=== PATIENT | male | born 1960 | race Caucasian/White ===

== ENCOUNTER 2018-10-08 05:39 | Day surgery (SDC) | payer MEDICARE ==
[2018-10-08] MEDS ORDERED: DIPRIVAN 200 MG/20 ML IV ONE (05:40)
[2018-10-08] MEDS ORDERED: Lactated Ringers 1,000 ML IV SCH (06:00)
[2018-10-08 09:16] LABS: Hematocrit 37.4 % (42-50); Hemoglobin 13.3 gm/dl (12.5-18.0); Mean Cell Volume 91.9 fl (78-100); Mean Corpuscular Hgb Concent. 35.6 g/dl (32-36); Mean Platelet Volume 10.2 fl (6-9.5); Platelet Count 132 K/mm3 (150-450); Red Blood Count 4.07 M/mm3 (4.1-5.6); Red Cell Distribution Width 12.7 % (11.5-14.0); White Blood Count 6.9 K/mm3 (4.0-10.5)
[2018-10-08 09:17] LABS: Mean Corpuscular Hemoglobin 32.6 pg (26-32)
[2018-10-08 09:19] VITALS: O2SAT 98
[2018-10-08 09:43] VITALS: BP 120/47; PULSE 55
--- NOTE | 2018-10-08 10:36 | OP ---
SURGERY DATE/TIME: 10/08/2018 0808 PREOPERATIVE DIAGNOSIS: Rectal bleeding, 40 pound weight loss. POSTOPERATIVE DIAGNOSIS: Rectal prolapse otherwise normal colon. PROCEDURE: Colonoscopy. SURGEON: Dr. Colvin. ANESTHESIA: MAC. Medications given by anesthesia department. HISTORY: The patient is a 58 year-old white male who presents now for colonoscopic evaluation. He reports his most recent exam was somewhere around 2004. The patient reports he has been having intermittent rectal bleeding over the past year. He reports a 40 pound weight loss unexplained. He is felt the need to have endoscopic evaluation. He was appraised of the risks of the procedure including the risk of perforation, phlebitis, untoward reaction to medication, bleeding and missed lesions. The patient verbalized his understanding and desired to have the procedure performed. DESCRIPTION OF PROCEDURE: The patient was given the medications by the anesthesia department. He had continuous pulse oximetry, ECG monitoring, intermittent blood pressure monitoring and tidal CO2 monitoring during the examination. He was placed in the left lateral decubitus position. A digital rectal examination was performed and revealed rectal prolapse which was somewhat friable. The anal sphincter tone was somewhat diminished. There were no other masses felt. The prostate was felt to be normal. The flexible Olympus pediatric colonoscope was used to intubate the rectum. A view of the colon was developed sequentially to the cecum including a short distance into the terminal ileum. Upon insertion and withdrawal, including a retroflex view in the rectum with no other mucosal lesions being encountered the scope was removed from the patient who tolerated the procedure well and was sent back to OP recovery in good condition. The prep was noted to be fair to good.
[2018-10-08] MEDS ORDERED: Lactated Ringers 1,000 ML IV ONE (11:03)
== END 2018-10-08 09:45 | disposition home or self-care (01) ==
LOC: SDC 05:39
PROVIDERS: ATTEND Family Medicine
DX: K62.3 Rectal prolapse (principal); R63.4 Abnormal weight loss; E11.9 Type 2 diabetes mellitus without complications; F41.9 Anxiety disorder, unspecified
CPT/HCPCS: 36415; 82962; 85027; J2704

== ENCOUNTER 2019-11-17 09:05 | Observation (INO) | payer MEDICARE ==
--- NOTE | 2019-11-17 08:16 | HP ---
DATE OF SURGERY: 11/17/2019 HISTORY OF PRESENT ILLNESS: The patient is a 59 year-old with history of rectal prolapse, history of rectal bleeding x20 years. He had some epigastric pain right abdomen. He had been referred for opinion at in the past but did not follow up with that. He had some persistent prolapse from bleeding at times. He desires considered surgical intervention. He has had no prior abdominal surgeries before. PAST MEDICAL HISTORY: Diabetes. Hyperlipidemia. Chronic constipation. Sinusitis in the past. Anxiety and depression in the past. PAST SURGICAL HISTORY: Shoulder surgery. Wrist surgery. MEDICATIONS: Escitalopram, Gemfibrozil, Glyburide, Metformin, omeprazole, simvastatin. ALLERGIES: NKDA. FAMILY HISTORY: Heart disease, diabetes, cancer. SOCIAL HISTORY: No alcohol abuse. Former smoker. REVIEW OF SYSTEMS: Fourteen systems reviewed. No chest pain or palpitations. Otherwise for as noted above. PHYSICAL EXAMINATION: GENERAL: No acute distress. HEENT: Sclerae nonicteric. NECK: No JVD. CHEST: Equal excursion, nonlabored breathing. CVS: Regular rate and rhythm. ABDOMEN: Soft. He had some mild tenderness epigastrium. RECTAL: He has had some prolapse of the rectal mucosa, internal and external hemorrhoids. EXTREMITIES: No significant edema. NEURO: Alert, oriented, moving extremities symmetrically. IMPRESSION: Epigastric pain unclear etiology could be gastritis, peptic ulcer disease, esophagitis or other etiology. I feel he would benefit from EGD possible biopsy. Given his problems with change in bowel movements, rectal bleeding, increased prolapse, some hemorrhoids of rectal mucosa, he was discussed options of colonoscopy for further evaluation as well as excisional internal and external hemorrhoidectomy. He was explained the risk in detail but not limited to bleeding or infection, risk of bowel injury or perforation possibly requiring open procedure, risk of missed or nondiagnosis or incomplete exam possibly requiring barium swallow, other studies or procedures regarding endoscopy, regarding his prolapse. He understands that he had been offered tertiary opinion in the past and did not follow up with it. He had been discussed options of excisional internal and external hemorrhoidectomy, general risk of bleeding or infection, risk of wound dehiscence, risk of anal stenosis, risks of aches, pains, burning, numbness transient or possible terminal supervisor. General risk of anesthesia, deep venous thrombosis, pulmonary embolism, pneumonia, remote risk of deeper perirectal infection possibly requiring major operative intervention. He also understands there is a possibility his prolapse is more functional, musculature or other etiology. It could very well be higher risk of recurrence. Given this case he would still get a tertiary opinion if it fails to improve his situation. He understands all the above and still desires to proceed with excisional internal and external hemorrhoids, colonoscopy, EGD possible biopsy as an outpatient.
[~2019-11-17 09:05] MED LIST: Lactated Ringers 1,000 ML IV ONE
[2019-11-17] MEDS ORDERED: EXPAREL 133 MG/10 ML VIAL IJ ONE (09:06)
[2019-11-17] MEDS ORDERED: MEFOXIN 2 GM PREMIX** 2 GM/50 ML ML IV ONE (09:29)
[2019-11-17] MEDS ORDERED: Lactated Ringers 1,000 ML IV SCH (09:30)
[2019-11-17] MEDS ORDERED: SUBLIMAZE 100 MCG/2 ML ONE ×3 (09:59→12:30)
[2019-11-17] MEDS ORDERED: Versed 2 MG/2 ML Injection ONE (09:59)
[2019-11-17] MEDS ORDERED: MEFOXIN 2 GM PREMIX** 2 GM/50 ML ML IV SCH (10:00)
[2019-11-17] MEDS ORDERED: DIPRIVAN 200 MG/20 ML IV ONE (10:00)
[2019-11-17] MEDS ORDERED: Pre-Attached Lta Kit TP ONE (10:40)
[2019-11-17] MEDS ORDERED: Quelicin Fliptop 200 MG/10 ML ONE (10:52)
[2019-11-17] MEDS ORDERED: DILAUDID 2 MG INJECTION ONE (11:26)
[2019-11-17] MEDS ORDERED: Compazine 10 MG/2 ML ONE (12:20)
[2019-11-17] MEDS ORDERED: Zofran 4 MG/2 ML VIAL ONE (13:09)
[2019-11-17] MEDS: Zofran 4 MG/2 ML VIAL IV PRN ×2 (13:10→18:12)
[2019-11-17] MEDS ORDERED: NORCO 5/325 MG PO PRN (13:10)
--- NOTE | 2019-11-17 13:52 | OP ---
SURGERY DATE/TIME: 11/17/2019 1045 PREOPERATIVE DIAGNOSES: 1) Four internal and external hemorrhoids with rectal mucosal prolapse. 2) History of epigastric pain, need for upper and lower endoscopy as well as hemorrhoidectomy. POSTOPERATIVE DIAGNOSES: 1) Minimal gastritis. 2) Plus or minus short segment of distal gastroesophagitis versus normal variation of gastroesophageal junction. 3) Diverticulosis. 4) Fair amount prep. 5) Small sigmoid colon polyp. 6) Grade IV internal and external hemorrhoids with rectal mucosal prolapse. PROCEDURES: 1) EGD with cold biopsy of small bowel to evaluate celiac sprue. 2) Cold biopsy body of antrum to evaluate for Helicobacter pylori. 3) Cold biopsy distal esophagus to evaluate for short segment early distal esophagitis versus normal variation of gastroesophageal junction. 4) Colonoscopy to cecum. 5) Cold biopsy removal of small sigmoid colon polyp. 6) Complex excision of internal/external hemorrhoidectomy left lateral and with excision of rectal mucosa prolapse as well as right posterior lateral columns. 7) Internal hemorrhoid banding right anterior hemorrhoidal column. SURGEON: Dr. Sánchez Mcwilliams. ANESTHESIA: General. ESTIMATED BLOOD LOSS: Less than 75 cc. INDICATIONS: As noted above. Risks and benefits explained in detail and not limited to and consent obtained. DESCRIPTION OF PROCEDURE AND FINDINGS: The patient is taken to the operating room. General anesthesia introduced after official time out and no disagreement with planned procedure. Video gastroscope passed down the oropharynx to patent pylorus to the junction to the junction of second and third portion of the duodenum. Given his symptom complaints and epigastric pain, cold biopsy is taken to evaluate for celiac sprue. Good hemostasis noted. Otherwise there were no signs of any obvious ulcers or masses in the proximal small bowel. Scope pulled back in the stomach. He had some minimal gastritis. Given symptom complaints cold biopsy taken to evaluate for Helicobacter pylori for CLOtest. On retroflex, gastroesophageal junction snug against the scope. There were no signs of any obvious ulcers, masses or other mucosal lesions in the stomach. Scope pulled back. Gastroesophageal junction 40 cm. There was short segment of possible early distal gastroesophagitis versus normal variation in gastroesophageal junction. Cold biopsy taken. Good hemostasis noted. Remainder of the esophagus grossly unremarkable. Scope withdrawn. The patient tolerated this part of the procedure well. Attention was then turned to colonoscopy. Remained in lateral position. Appropriate padding and positioning per anesthesia and OR staff. Digital rectal exam did not reveal any rectal masses. He did have the vague internal and external hemorrhoids with component of rectal mucosal prolapse. Video colonoscope passed up through the tortuous sigmoid, descending, transverse and ascending colon around to cecum. Appendiceal orifice and valve were well visualized. Prep overall was fair. There was a little bit of liquidy stool that was suction irrigated as clear as possible. The scope slowly and carefully withdrawn. Withdrawal time was around 6 minutes. He had some pancolonic mild diverticulosis. He did have a small polyp in the proximal sigmoid colon removed with cold biopsy forceps. Good hemostasis noted. Whether this is early adenoma versus hyperplastic or not removed with cold biopsy forceps. Good hemostasis noted. The scope pulled back to the rectum. No obvious rectal masses. At this point the patient was then placed in dorsal lithotomy position. He was prepped and draped in usual sterile fashion. Exparel injected circumferentially around the perirectal area. The most prominent prolapse is in the left lateral position, this is carefully excised starting internally out to perianal skin. He had more complex dissected off the subcu than off the internal sphincter. It was quite vascular with some pulsatile vessels were able to be controlled. The staff did not immediately have the 3-0 Monocryl available, 2-0 was used for controlling hemostasis in running fashion. He had a little bit of ooze more proximally therefore 3-0 Monocryl was then used for added hemostasis. Appeared to have adequate hemostasis at this point. Once this was accomplished it was elected to go to the opposite side this is mainly the left lateral just slightly posterior position. The next most prominent internal and external hemorrhoid component was the right posterior complex. Given the size of the prolapse on the other side, there is limited amount of skin that could be taken for spindle-shaped fashion. Dissection carried down dissecting the internal and external hemorrhoids component off the internal sphincter and passed off. The mucosa was closed out to the perianal skin with running 3-0 Monocryl. A little bit of ooze at the suture line and another 3-0 Monocryl used to reinforce the area. At this point it was felt the anal opening was getting a snug. It was felt it did not warrant taking additional skin and mucosa in the right anterior component. It was felt best to place internal hemorrhoid band on this to avoid any significant narrowing. Internal hemorrhoid band fit on easily, suction barrel bander loose component of the top edge of the internal hemorrhoid on this side. Suction barrel bander easily fired. Good tuft of the loose internal hemorrhoid tissue. At this point copious irrigation irrigating until clear. Appeared to have good hemostasis. Exparel had been placed at the beginning of the procedure. Hemostasis appeared to be adequate. For added hemostasis a piece of gel foam, Anusol ointment placed on it, some gauze and a piece of tape. The patient tolerated the procedure well. Findings discussed with the family out in the waiting area. Should he have problems with recurrent prolapse down the road, will need tertiary opinion. He will be quite sore in the near future. Sitz bath b.i.d., script for Valium for spasm, [place] for pain control, continue sitz bath, high fiber diet, Metamucil, Fibercon to titrate soft bulky bowel movements. I will see him back in the office in the next week or two depending on his choice of location to follow up at.
[2019-11-17] MEDS ORDERED: MORPHINE SULFATE 4 MG INJ ONE (14:14)
[2019-11-17] MEDS: MORPHINE SULFATE 4 MG INJ IV PRN ×2 (14:18→22:57)
[2019-11-17] MEDS ORDERED: Haldol 5 MG IV SCH (16:00)
[2019-11-17] MEDS ORDERED: Lactated Ringers 1,000 ML IV ONE (16:48)
[2019-11-17 17:19] LABS: Hematocrit 43.1 % (42-50); Hemoglobin 15.2 gm/dl (12.5-18.0); Mean Cell Volume 92.5 fl (78-100); Mean Corpuscular Hemoglobin 32.6 pg (26-32); Mean Corpuscular Hgb Concent. 35.3 g/dl (32-36); Mean Platelet Volume 11.1 fl (7.5-11.0); Platelet Count 131 K/mm3 (150-450); Red Blood Count 4.66 M/mm3 (4.1-5.6); White Blood Count 18.9 K/mm3 (4.0-10.5)
[2019-11-17 17:37] LABS: ALBUMIN 4.8 g/dL (3.5-5.0); ALKALINE PHOSPHATASE 93 U/L (38-126); ANION GAP 17.8 MEQ/L (5-15); BLOOD UREA NITROGEN 18 mg/dL (9-20); CHLORIDE 104 mmol/L (98-107); Calcium 9.1 mg/dL (8.4-10.2); Carbon Dioxide 22 mmol/L (22-30); Creatinine 1 0.64 mg/dL (0.66-1.25); Glucose 260 mg/dL (74-106); Potassium 3.5 mmol/L (3.5-5.1); SGOT/AST 34 U/L (17-59); SGPT/ALT 23 U/L (0-50); SODIUM 141 mmol/L (137-145); TROPONIN < 0.012 ng/mL (0.000-0.034); Total Protein 7.8 g/dL (6.3-8.2)
[2019-11-17] MEDS ORDERED: Valium 5 MG PO PRN (18:25)
[2019-11-17] MEDS ORDERED: HUMALOG SQ PRN (18:26)
[2019-11-17] MEDS ORDERED: Phenergan 25 MG INJ IV PRN (18:26)
[2019-11-17] MEDS: Sodium Chloride 0.9% 1000 ML 1,000 ML IV SCH (18:29)
[2019-11-17 23:42] VITALS: O2SAT 96
[2019-11-18] MEDS: Sodium Chloride 0.9% 1000 ML 1,000 ML IV SCH (04:55)
[2019-11-18 04:59] LABS: Absolute Neutrophil Ct (ANC) 9.74 (1.4-6.9); BASOPHIL % 0.1 % (0.0-0.4); Basophil (Absolute #) 0.01 (0-0.4); Eosinophil (Absolute #) 0 (0-0.5); Hematocrit 36.7 % (42-50); Hemoglobin 13.2 gm/dl (12.5-18.0); Lymphocyte (Absolute #) 0.88 (1.0-4.6); Lymphocytes % 7.6 % (24.0-44.0); Mean Cell Volume 92.2 fl (78-100); Mean Corpuscular Hemoglobin 33.2 pg (26-32); Mean Platelet Volume 11.2 fl (7.5-11.0); Monocyte (Absolute #) 0.91 (0.0-1.3); Monocytes % 7.9 % (0.0-12.0); Neutrophil % 84.4 % (36.0-66.0); Platelet Count 119 K/mm3 (150-450); Red Blood Count 3.98 M/mm3 (4.1-5.6); Red Cell Distribution Width 12.6 % (11.5-14.0); White Blood Count 11.5 K/mm3 (4.0-10.5)
[2019-11-18 05:16] LABS: ALBUMIN 4.3 g/dL (3.5-5.0); ALKALINE PHOSPHATASE 74 U/L (38-126); ANION GAP 11.4 MEQ/L (5-15); BLOOD UREA NITROGEN 15 mg/dL (9-20); CHLORIDE 105 mmol/L (98-107); Calcium 8.8 mg/dL (8.4-10.2); Carbon Dioxide 27 mmol/L (22-30); Creatinine 1 0.63 mg/dL (0.66-1.25); Glucose 168 mg/dL (74-106); Potassium 3.9 mmol/L (3.5-5.1); SGOT/AST 25 U/L (17-59); SGPT/ALT 22 U/L (0-50); SODIUM 140 mmol/L (137-145); Total Protein 7.1 g/dL (6.3-8.2)
[2019-11-18 08:04] VITALS: BP 172/85; PULSE 82
[2019-11-18] MEDS ORDERED: Glynase 3 MG PO SCH (09:00)
[2019-11-18] MEDS ORDERED: Glucophage 500 MG PO SCH (09:00)
[2019-11-18] MEDS ORDERED: NON-FORMULARY ITEM (Metformin Hcl 1000 Mg [Glucophage 1000 Mg] 1,000 MG) PO SCH (10:00)
[2019-11-18] MEDS ORDERED: FLUZONE QUAD 2019-2020 SYRINGE IM ONE (10:00)
[2019-11-18] MEDS ORDERED: LOPID 600 MG PO SCH (10:00)
[2019-11-18] MEDS ORDERED: Micronase 5 MG PO SCH (10:00)
[2019-11-18] MEDS ORDERED: NON-FORMULARY ITEM (Escitalopram Oxalate [Lexapro] 20 MG) PO SCH (10:00)
[2019-11-18] MEDS ORDERED: Lexapro 10 MG PO SCH (10:00)
[2019-11-18] MEDS ORDERED: NON-FORMULARY ITEM (Omeprazole [Omeprazole] 20 MG) PO SCH (10:00)
[2019-11-18] MEDS ORDERED: Protonix 40MG Tablet PO SCH (10:00)
[2019-11-18] MEDS ORDERED: ZOCOR 20MG PO SCH (10:00)
--- NOTE | 2019-11-18 10:16 | DS ---
DISCHARGE DIAGNOSES: 1) INTRACTABLE NAUSEA. 2) STATUS POST HEMORRHOIDECTOMY. HOSPITAL COURSE: The patient is a 59 year-old white male who underwent colonoscopy and hemorrhoidectomy for rectal prolapse, internal and external hemorrhoid banding. The patient postoperatively had nausea which was not controlled with Zofran, Haldol and Compazine. The patient was diaphoretic and very ill appearing and was therefore admitted to the hospital after four hour stay in outpatient recovery. By the next morning the patient was feeling much better and was able to drink fluids and was feeling ready for discharge home. The patient's home medications have included diazepam 10 mg every six hours PRN for anxiety, Lexapro 20 mg a day, Lopid 600 mg b.i.d., Glyburide 6 mg b.i.d., hydrocodone 5/325 mg every four hours PRN for pain, Metformin 1,000 mg b.i.d., omeprazole 20 mg a day, Simvastatin 20 mg a day. The patient was given pain medication by his surgeon which he will fill on his trip home. He has follow up to see the surgeon in the office in one week. The patient otherwise again is felt to be ready for discharge home. At the time of discharge the patient's labs showed his glucose to be 168, BUN 15, creatinine 0.63. Electrolytes normal. Liver enzymes normal. CBC showed his white count to be 11,500, hemoglobin 13.2 and PLT count 119,000. PHYSICAL EXAMINATION: HEENT: Normocephalic, atraumatic. Pupils equal round reactive to light. Extraocular movements intact. Oropharynx is pink and moist. NECK: Supple without lymphadenopathy, thyromegaly or JVD. CHEST: Clear to auscultation. HEART: Regular rhythm. ABDOMEN: Soft. No palpable masses. EXTREMITIES: Without cyanosis, clubbing or edema. NEUROLOGIC: The patient is alert and oriented x3. Again at this point the patient will be discharged home with instructions to return to the hospital if he has any worsening in his condition.
== END 2019-11-18 09:59 | disposition home or self-care (01) ==
LOC: SDC 09:05 → ICU 17:21 → INTOOBSV 17:21
PROVIDERS: ADMIT Family Medicine; ATTEND Family Medicine
DX: R11.0 Nausea (principal); R61 Generalized hyperhidrosis; R06.02 Shortness of breath; K64.3 Fourth degree hemorrhoids; K62.3 Rectal prolapse; K29.70 Gastritis, unspecified, without bleeding; K20.9 Esophagitis, unspecified; K57.30 Diverticulosis of large intestine without perforation or abscess without bleeding; K63.5 Polyp of colon; E11.9 Type 2 diabetes mellitus without complications; E78.5 Hyperlipidemia, unspecified; R10.13 Epigastric pain; Z79.899 Other long term (current) drug therapy
CPT/HCPCS: 36415; 43239; 45398; 46221; 46260; 80053; 82962; 84484; 85025; 85027; 87081; 93005; G0378; 88304; 88305; J0330; J0694; J1170; J1630; J1817; J2250; J2270; J2405; J2550; J2704; J3010; A9270-GY

== ENCOUNTER 2023-07-04 14:49 | Emergency (ER) | payer MEDICARE ==
--- NOTE | 2023-07-04 14:53 | ERPHSYRPT ---
- History of Present Illness Time Seen by Provider: 07/04/23 14:53 Source: patient, family, EMS Exam Limitations: no limitations Physician History: This is a 63-year-old white male patient of nurse practitioner Jett who was brought into the emergency department by slicing machine operator/tender/ambulance service secondary to nausea vomiting and generalized aches and pains. Symptoms have been progressively worsening over 3 to 4 days. His has similar symptoms and they have been trying to stay away from each other at home because of the fear of contagious symptoms. He also feels a little weak as well. Patient has multiple medical problems including diabetes, hypertension, gastroesophageal flux disease, hyperlipidemia and anxiety/depression. Patient has been feeling as though he has to have a bowel movement. However he has been constipated in the last 3 to 4 days. He denies chest pain. He denies shortness of breath or cough. Severity: moderate Associated Symptoms: nausea, vomiting, loss of appetite, malaise, weakness, No shortness of breath, No chest pain, No fever Allergies/Adverse Reactions: No Known Drug Allergies Allergy (Verified 07/04/23 15:01) Home Medications: Gemfibrozil [Lopid] 600 mg PO BID 12/22/14 [History] Metformin HCl 1000 mg [Glucophage 1000 MG] 1,000 mg PO BID 12/22/14 [History] Simvastatin 20Mg [Zocor 20Mg] 20 mg PO DAILY 10/07/18 [History] Dicyclomine HCl 20 mg PO QID 07/04/23 [History] PANTOPRAZOLE 40 mg Tablet [Protonix 40MG Tablet] 40 mg PO QAM 07/04/23 [History] Sertraline HCl 50 mg [Zoloft 50 mg Tablet] 50 mg PO DAILY 07/04/23 [History] glipiZIDE [Glipizide] 5 mg PO BID 07/04/23 [History] lisinopriL [Zestril] 2.5 mg PO DAILY 07/04/23 [History] Hx Tetanus, Diphtheria Vaccination/Date Given: Yes Hx Influenza Vaccination/Date Given: Yes Hx Pneumococcal Vaccination/Date Given: No Travel Risk - International Travel Have you traveled outside of the country in past 3 weeks: No - Coronavirus Screening Are you exhibiting any of the following symptoms?: Yes Symptoms: Vomiting/Diarrhea, Headaches/Body Aches/Fatigue Close contact with a COVID-19 positive Pt in past 14-21 Days: No - Review of Systems Constitutional: Malaise, Weakness Eyes: No Symptoms Ears, Nose, & Throat: No Symptoms Respiratory: No Symptoms Cardiac: No Symptoms Abdominal/Gastrointestinal: Nausea, Vomiting, Constipation, Appetite Changes, No Abdominal Pain Genitourinary Symptoms: No Symptoms Musculoskeletal: Arthralgias, Myalgias Skin: No Symptoms Neurological: No Symptoms Psychological: No Symptoms Endocrine: No Symptoms Hematologic/Lymphatic: No Symptoms Immunological/Allergic: No Symptoms All Other Systems: Reviewed and Negative - Past Medical History Pertinent Past Medical History: Yes Neurological History: No Pertinent History ENT History: No Pertinent History Cardiac History: No Pertinent History Respiratory History: Sleep Apnea, Other Endocrine Medical History: Diabetes Type II Musculoskeletal History: Other GI Medical History: GERD, Hemorrhoids History: Renal Disease, Other Psycho-Social History: Anxiety, Depression Male Reproductive Disorders: No Pertinent History Other Medical History: Former smoker. Hx of kidney stones. First stage kidney disease.Titanium plate in right wrist. - Past Surgical History Past Surgical History: Yes Neuro Surgical History: No Pertinent History Cardiac: No Pertinent History Respiratory: No Pertinent History Gastrointestinal: No Pertinent History Genitourinary: No Pertinent History Musculoskeletal: Orthopedic Surgery Male Surgical History: No Pertinent History Other Surgical History: Rotator cuff surgery, Rt wrist with titanium plate. carpal tunnel, left elbow.colonoscopy - Social History Smoking Status: Former smoker How long have you smoked: 20years Exposure to second hand smoke: No Drug Use: none Patient Lives Alone: No - Nursing Vital Signs Nursing Vital Signs: Initial Vital Signs Temperature 96.7 F 07/04/23 14:51 Pulse Rate 58 L 07/04/23 14:51 Blood Pressure 178/73 07/04/23 14:51 O2 Sat by Pulse Oximetry 100 07/04/23 14:51 Pain Scale Pain Intensity 8 - Physical Exam General Appearance: mild distress, alert, anxiety Eye Exam: PERRL/EOMI, eyes nml inspection Ears, Nose, Throat Exam: normal ENT inspection, moist mucous membranes Neck Exam: normal inspection, non-tender, supple, full range of motion Respiratory Exam: normal breath sounds, lungs clear, airway intact, No chest tenderness, No respiratory distress Cardiovascular Exam: regular rate/rhythm, normal heart sounds, normal peripheral pulses Gastrointestinal/Abdomen Exam: soft, normal bowel sounds, No tenderness Rectal Exam: not done Back Exam: normal inspection, normal range of motion, No CVA tenderness, No vertebral tenderness Extremity Exam: normal inspection, normal range of motion, pelvis stable Neurologic Exam: alert, oriented x 3, cooperative, workforce development assistant II-XII nml as tested, normal mood/affect, nml cerebellar function, nml station & gait, sensation nml Skin Exam: normal color, warm, dry Lymphatic Exam: No adenopathy SpO2 Interpretation: normal O2 Delivery: Room Air - Course Nursing assessment & vital signs reviewed: Yes Ordered Tests: Active Orders 24 hr Category Date Time Status EKG-ER Only STAT Care 07/04/23 15:19 Active IV Insertion STAT Care 07/04/23 15:19 Active ABDOMEN AND PELVIS W/0 CONTRAS [CT] Stat Exams 07/04/23 15:34 Completed AMYLASE Stat Lab 07/04/23 15:30 Completed CBC W DIFF Stat Lab 07/04/23 15:30 Completed CMP Stat Lab 07/04/23 15:30 Completed LIPASE Stat Lab 07/04/23 15:30 Completed TROPONIN Q4H Lab 07/04/23 15:30 Completed TROPONIN Q4H Lab 07/04/23 19:30 Ordered TROPONIN Q4H Lab 07/04/23 23:30 Ordered UA W/RFX UR CULTURE Stat Lab 07/04/23 18:17 Completed Medication Summary Generic Name Dose Route Start Last Admin Trade Name Freq PRN Reason Stop Dose Admin Sodium Chloride 1,000 mls @ 999 mls/hr 07/04/23 18:44 Sodium Chloride 0.9% 1000 Ml IV 07/04/23 19:44 .Q1H1M STA Discontinued Medications Generic Name Dose Route Start Last Admin Trade Name Freq PRN Reason Stop Dose Admin Hydromorphone HCl 1 mg 07/04/23 15:33 07/04/23 15:46 Hydromorphone 1 Mg/1ml Inj IV 07/04/23 15:34 1 mg STAT ONE Administration Hydromorphone HCl Confirm 07/04/23 15:45 Hydromorphone 1 Mg/1ml Inj Administered 07/04/23 15:46 Dose 1 mg .ROUTE .STK-MED ONE Sodium Chloride 1,000 mls @ 999 mls/hr 07/04/23 15:19 07/04/23 17:04 Sodium Chloride 0.9% 1000 Ml IV 07/04/23 16:19 Infused .Q1H1M STA Infusion Sodium Chloride Confirm 07/04/23 15:46 Sodium Chloride 0.9% 1000 Ml Administered 07/04/23 15:47 Dose 1,000 mls @ ud .ROUTE .STK-MED ONE Sodium Chloride 1,000 mls @ 999 mls/hr 07/04/23 17:24 07/04/23 17:36 Sodium Chloride 0.9% 1000 Ml IV 07/04/23 18:24 999 mls/hr .Q1H1M STA Administration Sodium Chloride Confirm 07/04/23 17:34 Sodium Chloride 0.9% 1000 Ml Administered 07/04/23 17:35 Dose 1,000 mls @ ud .ROUTE .STK-MED ONE Ondansetron HCl 4 mg 07/04/23 15:19 07/04/23 15:46 Ondansetron Hcl 4 Mg/2 Ml Vial IV 07/04/23 15:20 4 mg STAT ONE Administration Ondansetron HCl Confirm 07/04/23 15:45 Ondansetron Hcl 4 Mg/2 Ml Vial Administered 07/04/23 15:46 Dose 4 mg .ROUTE .STK-MED ONE Lab/Rad Data: Laboratory Result Diagrams 07/04/23 15:30 07/04/23 15:30 Laboratory Results 07/04/23 07/04/23 07/04/23 Range/Units 18:17 15:30 15:30 WBC (4.0-10.5) x10^3/uL RBC (4.1-5.6) x10^6/uL Hgb (12.5-18.0) g/dL Hct (42-50) % MCV (78-100) fL MCH (26-32) pg MCHC (32-36) g/dL RDW (11.5-14.0) % Plt Count (150-450) x10^3/uL MPV (7.5-11.0) fL Gran % (36.0-66.0) % Immature Gran % (Auto) (0.00-0.4) % Nucleat RBC Rel Count (0.00-0.1) % Eos # (Auto) (0-0.5) x10^3/uL Immature Gran # (Auto) (0.00-0.03) x10^3u/L Absolute Lymphs (auto) (1.0-4.6) x10^3/uL Absolute Monos (auto) (0.0-1.3) x10^3/uL Absolute Nucleated RBC (0.00-0.01) x10^3u/L Lymphocytes % (24.0-44.0) % Monocytes % (0.0-12.0) % Eosinophils % (0.00-5.0) % Basophils % (0.0-0.4) % Absolute Granulocytes (1.4-6.9) x10^3/uL Basophils # (0-0.4) x10^3/uL Sodium (137-145) mmol/L Potassium (3.5-5.1) mmol/L Chloride (98-107) mmol/L Carbon Dioxide (22-30) mmol/L Anion Gap (5-15) MEQ/L BUN (9-20) mg/dL Creatinine (0.66-1.25) mg/dL Estimated GFR ML/MIN Glucose (74-106) mg/dL Calcium (8.4-10.2) mg/dL Total Bilirubin (0.2-1.3) mg/dL AST (17-59) U/L ALT (0-50) U/L Alkaline Phosphatase (38-126) U/L Troponin I < 0.012 (0.000-0.034) ng/mL Serum Total Protein (6.3-8.2) g/dL Albumin (3.5-5.0) g/dL Amylase (30-110) U/L Lipase (23-300) U/L Urine Color Yellow (Yellow) Urine Appearance Clear (Clear) Urine pH 6.5 (4.6-8.0) Ur Specific Mobile >=1.030 A (1.005-1.030) Urine Protein 30 (Negative) Urine Glucose (UA) >=1000 A (Negative) mg/dL Urine Ketones 80 A (Negative) Urine Blood Negative (Negative) Urine Nitrite Negative (Negative) Urine Bilirubin Negative (Negative) Urine Urobilinogen 1.0 A (0.2) mg/dL Ur Leukocyte Esterase Negative (Negative) U Hyaline Cast (Auto) 3-5 A (0-2) /LPF Urine Microscopic RBC 0-2 (0-5) /HPF Urine Microscopic WBC 0-2 (0-5) /HPF Ur Epithelial Cells None Seen (None Seen) /HPF Urine Bacteria None Seen (None Seen) /HPF Urine Culture Reflexed NO (NO) Influenza Type A Ag NEGATIVE (NEGATIVE) Influenza Type B Ag NEGATIVE (NEGATIVE) RSV (PCR) NEGATIVE (NEGATIVE) SARS-CoV-2 (PCR) POSITIVE A (NEGATIVE) Slides for Path Review 07/04/23 07/04/23 Range/Units 15:30 15:30 WBC 3.3 L (4.0-10.5) x10^3/uL RBC 4.25 (4.1-5.6) x10^6/uL Hgb 13.8 (12.5-18.0) g/dL Hct 38.3 L (42-50) % MCV 90.1 (78-100) fL MCH 32.5 H (26-32) pg MCHC 36.0 (32-36) g/dL RDW 11.9 (11.5-14.0) % Plt Count 99 L (150-450) x10^3/uL MPV 10.6 (7.5-11.0) fL Gran % 72.9 H (36.0-66.0) % Immature Gran % (Auto) 0.3 (0.00-0.4) % Nucleat RBC Rel Count 0.0 (0.00-0.1) % Eos # (Auto) 0 (0-0.5) x10^3/uL Immature Gran # (Auto) 0.01 (0.00-0.03) x10^3u/L Absolute Lymphs (auto) 0.41 L (1.0-4.6) x10^3/uL Absolute Monos (auto) 0.46 (0.0-1.3) x10^3/uL Absolute Nucleated RBC 0.00 (0.00-0.01) x10^3u/L Lymphocytes % 12.5 L (24.0-44.0) % Monocytes % 14.0 H (0.0-12.0) % Eosinophils % 0.0 (0.00-5.0) % Basophils % 0.3 (0.0-0.4) % Absolute Granulocytes 2.40 (1.4-6.9) x10^3/uL Basophils # 0.01 (0-0.4) x10^3/uL Sodium 136 L (137-145) mmol/L Potassium 3.9 (3.5-5.1) mmol/L Chloride 106 (98-107) mmol/L Carbon Dioxide 16 L* (22-30) mmol/L Anion Gap 20.1 H (5-15) MEQ/L BUN 29 H (9-20) mg/dL Creatinine 0.66 (0.66-1.25) mg/dL Estimated GFR > 60.0 ML/MIN Glucose 241 H (74-106) mg/dL Calcium 9.2 (8.4-10.2) mg/dL Total Bilirubin 0.60 (0.2-1.3) mg/dL AST 55 (17-59) U/L ALT 42 (0-50) U/L Alkaline Phosphatase 92 (38-126) U/L Troponin I (0.000-0.034) ng/mL Serum Total Protein 7.2 (6.3-8.2) g/dL Albumin 4.6 (3.5-5.0) g/dL Amylase 79 (30-110) U/L Lipase 185 (23-300) U/L Urine Color (Yellow) Urine Appearance (Clear) Urine pH (4.6-8.0) Ur Specific Mobile (1.005-1.030) Urine Protein (Negative) Urine Glucose (UA) (Negative) mg/dL Urine Ketones (Negative) Urine Blood (Negative) Urine Nitrite (Negative) Urine Bilirubin (Negative) Urine Urobilinogen (0.2) mg/dL Ur Leukocyte Esterase (Negative) U Hyaline Cast (Auto) (0-2) /LPF Urine Microscopic RBC (0-5) /HPF Urine Microscopic WBC (0-5) /HPF Ur Epithelial Cells (None Seen) /HPF Urine Bacteria (None Seen) /HPF Urine Culture Reflexed (NO) Influenza Type A Ag (NEGATIVE) Influenza Type B Ag (NEGATIVE) RSV (PCR) (NEGATIVE) SARS-CoV-2 (PCR) (NEGATIVE) Slides for Path Review YES - Progress Progress: improved, pain not gone completely, re-examined Progress Note: 07/04/23 18:33 This patient's medical issue is 1 of moderate complexity. Level complex in the work-up performed based on review of the patient's past medical history, review of the patient's medication list, review of the patient's drug allergy list, history of present illness and physical findings on examination. This work-up includes placement of intravenous line, CBC, CMP, urinalysis, amylase and lipase levels, COVID-19, influenza a and B, RSV levels, mono test. We provide the patient with a liter of intravenous normal saline solution, 1 mg intravenous Dilaudid, 4 mg of intravenous Zofran. I reviewed the above laboratory results. Patient has infection of her COVID-19. He is dehydrated. We will provide him with at least 1 more liter of normal saline solution. CT scan of the abdomen pelvis without contrast was interpreted by the radiologist. There is a new small hiatal hernia present. Small bowel loops are nonobstructed. There is a normal appendix. There is sigmoid diverticulosis without diverticulitis. There is little to no scattered colonic fecal debris I reexamined the patient. His room air oxygenation saturation level is 98%. He is feeling much improved. We will provide him with at least another liter of normal saline solution. We will check his urinalysis and determine if he needs another l of normal saline solution. Patient would like to try to go home if po ssible. It does appear he may have mild DKA. I feel that after his fluid infusion he will be stable for discharge to home. Counseled pt/family regarding: lab results, diagnosis, need for follow-up, rad results Medical Desision Making - Independent Historian Additional History obtained from: Spray I Painter/EMT - Diagnostic Testing Diagnostic test were ordered, analyzed, and reviewed by me: Yes Radiological Interpretation: Reviewed by me, Teleradiologist Report - Risk of complications The pt has a mod risk of morbidity or mortality based on: Need for prescription drug management - Departure Departure Disposition: Home Clinical Impression: COVID-19 virus infection, DKA (diabetic ketoacidosis) Condition: Stable Critical Care Time: No Referrals: LEVON PINA NP [Primary Care Provider] - Follow up/PCP as directed Additional Instructions: Drink plenty of fluids. Take your medications as prescribed. Follow-up with your primary care provider by phone tomorrow, 07/05/2023, to make arrangements for follow-up appointment in a week to 10 days. Return to the emergency department if symptoms worsen. Prescriptions: Hydrocodone/Acetaminophen [Hydrocodone-Acetamn 7.5-325/15] 10 ml PO Q8H PRN #120 ml MDD 30 ml PRN Reason: Cough
[2023-07-04 15:01] VITALS: TEMP 96.7
[2023-07-04] MEDS ORDERED: Zofran 4 MG/2 ML VIAL IV ONE (15:19)
[2023-07-04] MEDS ORDERED: Sodium Chloride 0.9% 1000 ML 1,000 ML IV STA ×3 (15:19→18:44)
[2023-07-04] MEDS ORDERED: Hydromorphone 1 mg/ml Injection IV ONE (15:33)
[2023-07-04 15:38] LABS: BASOPHIL % 0.3 % (0.0-0.4); Basophil (Absolute #) 0.01 x10^3/uL (0-0.4); Eosinophil (Absolute #) 0 x10^3/uL (0-0.5); Hematocrit 38.3 % (42-50); Hemoglobin 13.8 g/dL (12.5-18.0); IMMATURE GRAN # 0.01 x10^3u/L (0.00-0.03); IMMATURE GRAN % 0.3 % (0.00-0.4); Lymphocyte (Absolute #) 0.41 x10^3/uL (1.0-4.6); Lymphocytes % 12.5 % (24.0-44.0); Mean Cell Volume 90.1 fL (78-100); Mean Corpuscular Hemoglobin 32.5 pg (26-32); Mean Platelet Volume 10.6 fL (7.5-11.0); Monocyte (Absolute #) 0.46 x10^3/uL (0.0-1.3); Neutrophil % 72.9 % (36.0-66.0); Platelet Count 99 x10^3/uL (150-450); Red Blood Count 4.25 x10^6/uL (4.1-5.6); Red Cell Distribution Width 11.9 % (11.5-14.0); White Blood Count 3.3 x10^3/uL (4.0-10.5)
[2023-07-04] MEDS ORDERED: Zofran 4 MG/2 ML VIAL ONE (15:45)
[2023-07-04] MEDS ORDERED: Hydromorphone 1 mg/ml Injection ONE (15:45)
[2023-07-04] MEDS ORDERED: Sodium Chloride 0.9% 1000 ML 1,000 ML ONE ×3 (15:46→19:11)
[2023-07-04 15:57] LABS: ALBUMIN 4.6 g/dL (3.5-5.0); ALKALINE PHOSPHATASE 92 U/L (38-126); AMYLASE 79 U/L (30-110); ANION GAP 20.1 MEQ/L (5-15); BLOOD UREA NITROGEN 29 mg/dL (9-20); CHLORIDE 106 mmol/L (98-107); Calcium 9.2 mg/dL (8.4-10.2); Creatinine 1 0.66 mg/dL (0.66-1.25); EST GLOMERULAR FILTRATION RATE > 60.0 ML/MIN; Glucose 241 mg/dL (74-106); LIPASE 185 U/L (23-300); Potassium 3.9 mmol/L (3.5-5.1); SGOT/AST 55 U/L (17-59); SGPT/ALT 42 U/L (0-50); SODIUM 136 mmol/L (137-145); Total Protein 7.2 g/dL (6.3-8.2)
[2023-07-04 16:04] LABS: Carbon Dioxide 16 mmol/L (22-30)
[2023-07-04 16:15] LABS: INFLUENZA A NEGATIVE (NEGATIVE); INFLUENZA B NEGATIVE (NEGATIVE); RESPIRATORY SYNCTIAL VIRUS NEGATIVE (NEGATIVE)
[2023-07-04 16:23] LABS: Slide Review 1 YES
[2023-07-04 16:24] LABS: SARS-CoV-2 Xpert Express POSITIVE (NEGATIVE)
--- NOTE | 2023-07-04 16:58 | XRAY ---
Indication: Left lower quadrant pain. Constipation. Multiple contiguous axial images obtained through the abdomen and pelvis without contrast. Comparison: August 05, 2018 Lung bases clear. Heart not enlarged. New small hiatal hernia. Noncontrasted stomach and bowel loops nonobstructed with normal appendix. Again mild sigmoid diverticulosis without diverticulitis. Little to no scattered colonic fecal debris. Stable mild fatty liver, nonobstructing left renal punctate calculus, and pancreatic tail chronic pancreatitis calcification. No free fluid/air. Remaining liver, gallbladder, pancreas, spleen, adrenal glands, kidneys, ureters, bladder, and aorta are unremarkable for noncontrast exam. Osseous structures intact. Stable small fatty left inguinal hernia. Impression: 1. New hiatal hernia. 2. Again chronic findings including sigmoid diverticulosis, fatty liver, nonobstructing left renal punctate calculus, chronic pancreatitis calcification, and fatty left inguinal hernia. 3. Remaining CT abdomen/pelvis without contrast exam is negative.
[2023-07-04 18:38] LABS: Appearance Clear (Clear); Bacteria None Seen /HPF (None Seen); Bilirubin Negative (Negative); Blood Negative (Negative); Epithelial Cells None Seen /HPF (None Seen); Glucose, Urine >=1000 mg/dL (Negative); Ketones 80 (Negative); Leukocyte Esterase Negative (Negative); Nitrite Negative (Negative); Ph 6.5 (4.6-8.0); Protein,Urine Dip 30 (Negative); RBC 0-2 /HPF (0-5); Specific Gravity >=1.030 (1.005-1.030); WBC 0-2 /HPF (0-5)
[2023-07-04 18:42] LABS: ADD URINE CULTURE? NO (NO)
[2023-07-04] MEDS ORDERED: HYDROCODONE-ACETAMIN 2.5-108/5 ML SOLUTION PO STA (19:15)
[2023-07-04] MEDS ORDERED: HYDROCODONE-ACETAMIN 2.5-108/5 ML SOLUTION ONE (19:22)
[2023-07-04 19:42] VITALS: RESP 18; O2SAT 100
[2023-07-04 20:12] VITALS: BP 147/76; PULSE 45
== END 2023-07-04 20:23 | disposition home or self-care (01) ==
LOC: ED 14:49
DX: U07.1 COVID-19 (principal); E11.10 Type 2 diabetes mellitus with ketoacidosis without coma; R11.2 Nausea with vomiting, unspecified; M79.10 Myalgia, unspecified site; R53.1 Weakness; I12.9 Hypertensive chronic kidney disease with stage 1 through stage 4 chronic kidney disease, or unspecified chronic kidney disease; E11.22 Type 2 diabetes mellitus with diabetic chronic kidney disease; N18.1 Chronic kidney disease, stage 1; E78.5 Hyperlipidemia, unspecified; Z79.84 Long term (current) use of oral hypoglycemic drugs; Z79.891 Long term (current) use of opiate analgesic; Z79.899 Other long term (current) drug therapy
CPT/HCPCS: 0241U; 36415; 74176; 80053; 81001; 82150; 83690; 84484; 85025; 96360; 96374; 96375; 99284; J1170; J2405; A9270-GY

== ENCOUNTER 2025-06-25 11:24 | Emergency (ER) | payer MEDICARE ==
--- NOTE | 2025-06-25 11:47 | ERPHSYRPT ---
- History of Present Illness Time Seen by Provider: 06/25/25 11:46 Source: patient, family Exam Limitations: no limitations Physician History: This is a 65-year-old white male patient of nurse practitioner Jett who arrives by private vehicle accompanied by his spouse with the complaint of lower abdominal pain, rectal pain and weight loss for at least 2 months. He has difficulty having a bowel movement. This has worsened over at least 2 months. Patient underwent a colonoscopy as well as banding of internal hemorrhoids and excision of external hemorrhoids with excision of rectal mucosal prolapse and rectal lateral columns on November 17, 2019. Patient states that the pain down low in the pelvis is severe cramping. Patient has a history of diabetes, hypertension, gastroesophageal reflux disease, hyperlipidemia, anxiety and depression as well as chronic renal disease. He denies chest pain and he denies shortness of breath. Timing/Duration: other (For at least 2 months) Severity: moderate Modifying Factors: Improves With: other (Pain worsens with attempting to have a bowel movement) Associated Symptoms: abdominal pain (Mild pelvic and rectal floor pain), No shortness of breath, No chest pain Allergies/Adverse Reactions: No Known Drug Allergies Allergy (Verified 06/25/25 11:37) Home Medications: Metformin HCl 1000 mg [Glucophage 1000 MG] 1,000 mg PO BID 12/22/14 [History] Simvastatin 20Mg [Zocor 20Mg] 20 mg PO DAILY 10/07/18 [History] PANTOPRAZOLE 40 mg Tablet [Protonix 40MG Tablet] 40 mg PO QAM 07/04/23 [History] Sertraline HCl 50 mg [Zoloft 50 mg Tablet] 50 mg PO DAILY 07/04/23 [History] glipiZIDE [Glipizide] 5 mg PO BID 07/04/23 [History] lisinopriL [Zestril] 2.5 mg PO DAILY 07/04/23 [History] Hx Tetanus, Diphtheria Vaccination/Date Given: Yes Hx Influenza Vaccination/Date Given: Yes Hx Pneumococcal Vaccination/Date Given: No Travel Risk - International Travel Have you traveled outside of the country in past 3 weeks: No - Emerging Infectious Disease Are you exhibiting symptoms associated with any current EIDs: No - Review of Systems Constitutional: No Symptoms Eyes: No Symptoms Ears, Nose, & Throat: No Symptoms Respiratory: No Symptoms Cardiac: No Symptoms Abdominal/Gastrointestinal: Abdominal Pain (Suprapubic/pelvic pain/discomfort) Genitourinary Symptoms: No Symptoms Musculoskeletal: No Symptoms Skin: No Symptoms Neurological: No Symptoms Psychological: No Symptoms Endocrine: No Symptoms Hematologic/Lymphatic: No Symptoms Immunological/Allergic: No Symptoms All Other Systems: Reviewed and Negative - Past Medical History Pertinent Past Medical History: Yes Neurological History: No Pertinent History ENT History: No Pertinent History Cardiac History: No Pertinent History Respiratory History: Sleep Apnea, Other Endocrine Medical History: Diabetes Type II Musculoskeletal History: Other GI Medical History: GERD, Hemorrhoids History: Renal Disease, Other Psycho-Social History: Anxiety, Depression Male Reproductive Disorders: No Pertinent History Other Medical History: Former smoker. Hx of kidney stones. First stage kidney disease.Titanium plate in right wrist. - Past Surgical History Past Surgical History: Yes Neuro Surgical History: No Pertinent History Cardiac: No Pertinent History Respiratory: No Pertinent History Gastrointestinal: No Pertinent History Genitourinary: No Pertinent History Musculoskeletal: Orthopedic Surgery Male Surgical History: No Pertinent History Other Surgical History: Rotator cuff surgery, Rt wrist with titanium plate. carpal tunnel, left elbow.colonoscopy - Social History Smoking Status: Former smoker How long have you smoked: 20years Exposure to second hand smoke: No Drug Use: none Patient Lives Alone: No - Nursing Vital Signs Nursing Vital Signs: Initial Vital Signs Temperature 97 F 06/25/25 11:25 Pulse Rate 92 H 06/25/25 11:25 Respiratory Rate 16 06/25/25 11:25 Blood Pressure 161/95 06/25/25 11:25 O2 Sat by Pulse Oximetry 100 06/25/25 11:25 Pain Scale Pain Intensity 8 - Physical Exam General Appearance: mild distress, alert, anxiety Eye Exam: PERRL/EOMI, eyes nml inspection Ears, Nose, Throat Exam: normal ENT inspection, moist mucous membranes Neck Exam: normal inspection, non-tender, supple, full range of motion Respiratory Exam: normal breath sounds, lungs clear, airway intact, No chest tenderness, No respiratory distress Cardiovascular Exam: regular rate/rhythm, normal heart sounds, normal peripheral pulses Gastrointestinal/Abdomen Exam: soft, normal bowel sounds, tenderness (Mild tenderness suprapubic region to palpation), guarding (Mild tenderness suprapubic region to palpation), No rebound Rectal Exam: other (External examination shows possible rectal prolapse) Back Exam: normal inspection, normal range of motion, No CVA tenderness, No vertebral tenderness Extremity Exam: normal inspection, normal range of motion, pelvis stable Neurologic Exam: alert, oriented x 3, cooperative, billing customer service representative II-XII nml as tested, nml cerebellar function, nml station & gait, sensation nml Skin Exam: normal color, warm, dry Lymphatic Exam: No adenopathy SpO2 Interpretation: normal O2 Delivery: Room Air - Course Nursing assessment & vital signs reviewed: Yes Ordered Tests: Active Orders 24 hr Category Date Time Status IV Insertion STAT Care 06/25/25 11:58 Active ABDOMEN AND PELVIS W/0 CONTRAS [CT] Stat Exams 06/25/25 11:59 Completed AMYLASE Stat Lab 06/25/25 12:13 Completed CBC W DIFF Stat Lab 06/25/25 12:13 Completed CMP Stat Lab 06/25/25 12:13 Completed LIPASE Stat Lab 06/25/25 12:13 Completed POCT GLUCOSE Stat Lab 06/25/25 12:43 Completed UA W/RFX UR CULTURE Stat Lab 06/25/25 13:38 Completed Medication Summary Discontinued Medications Generic Name Dose Route Start Last Admin Trade Name Freq PRN Reason Stop Dose Admin Hydromorphone HCl 1 mg 06/25/25 11:58 06/25/25 12:16 Hydromorphone 1 Mg/1ml Inj IV 06/25/25 11:59 1 mg STAT ONE Administration Hydromorphone HCl Confirm 06/25/25 12:11 Hydromorphone 1 Mg/1ml Inj Administered 06/25/25 12:12 Dose 1 mg .ROUTE .STK-MED ONE Sodium Chloride 1,000 mls @ 999 mls/hr 06/25/25 11:58 06/25/25 13:19 Sodium Chloride 0.9% 1000 Ml IV 06/25/25 12:58 Infused .Q1H1M STA Infusion Sodium Chloride Confirm 06/25/25 12:11 Sodium Chloride 0.9% 1000 Ml Administered 06/25/25 12:12 Dose 1,000 mls @ ud .ROUTE .STK-MED ONE Metronidazole 500 mg 06/25/25 14:08 06/25/25 14:22 Metronidazole 500 Mg Tablet PO 06/25/25 14:09 500 mg STAT ONE Administration Metronidazole Confirm 06/25/25 14:20 Metronidazole 500 Mg Tablet Administered 06/25/25 14:21 Dose 500 mg .ROUTE .STK-MED ONE Ondansetron HCl 4 mg 06/25/25 11:58 06/25/25 12:15 Ondansetron Hcl 4 Mg/2 Ml Vial IV 06/25/25 11:59 4 mg STAT ONE Administration Ondansetron HCl Confirm 06/25/25 12:11 Ondansetron Hcl 4 Mg/2 Ml Vial Administered 06/25/25 12:12 Dose 4 mg .ROUTE .STK-MED ONE Lab/Rad Data: Laboratory Result Diagrams 06/25/25 12:13 06/25/25 12:13 Laboratory Results 06/25/25 06/25/25 06/25/25 Range/Units 13:38 12:43 12:13 WBC (4.23-9.07) x10^3/uL RBC (4.63-6.08) x10^6/uL Hgb (13.7-17.5) g/dL Hct (40.1-51.0) % MCV (79.0-92.2) fL MCH (25.7-32.2) pg MCHC (32.3-36.5) g/dL RDW (11.6-14.4) % Plt Count (163-337) x10^3/uL MPV (9.4-12.4) fL Gran % (34.0-67.9) % Immature Gran % (Auto) (0.001-0.429) % Nucleat RBC Rel Count (0.00-0.2) % Eos # (Auto) (0.04-0.54) x10^3/uL Immature Gran # (Auto) (0.001-0.031) x10^3u/L Absolute Lymphs (auto) (1.32-3.57) x10^3/uL Absolute Monos (auto) (0.30-0.82) x10^3/uL Absolute Nucleated RBC (0.00-0.012) x10^3u/L Lymphocytes % (21.8-53.1) % Monocytes % (5.3-12.2) % Eosinophils % (0.8-7.0) % Basophils % (0.2-1.2) % Absolute Granulocytes (1.78-5.38) x10^3/uL Basophils # (0.01-0.08) x10^3/uL Sodium 136 (135-145) mmol/L Potassium 4.3 (3.5-5.1) mmol/L Chloride 101 (98-107) mmol/L Carbon Dioxide 24 (22-30) mmol/L Anion Gap 16.3 H (5-15) MEQ/L BUN 23 H (9-20) mg/dL Creatinine 0.77 (0.66-1.25) mg/dL Estimated GFR 100.0 ML/MIN Glucose 278 H (74-106) mg/dL POC Glucometer 232 H (74 to 106) mg/dL Calcium 9.7 (8.4-10.2) mg/dL Total Bilirubin 1.10 (0.2-1.3) mg/dL AST 41 (17-59) U/L ALT 32 (0-50) U/L Alkaline Phosphatase 85 (38-126) U/L Serum Total Protein 7.6 (6.3-8.2) g/dL Albumin 4.5 (3.5-5.0) g/dL Amylase (30-110) U/L Lipase (23-300) U/L Urine Color Yellow (Yellow) Urine Appearance Clear (Clear) Urine pH 7.0 (4.6-8.0) Ur Specific [place] >=1.030 A (1.005-1.030) Urine Protein 30 (Negative) Urine Glucose (UA) >=1000 A (Negative) mg/dL Urine Ketones 15 A (Negative) Urine Blood Negative (Negative) Urine Nitrite Negative (Negative) Urine Bilirubin Negative (Negative) Urine Urobilinogen 1.0 A (0.2) mg/dL Ur Leukocyte Esterase Negative (Negative) U Hyaline Cast (Auto) NONE SEEN (0-2) /LPF Urine Microscopic RBC 0-2 (0-5) /HPF Urine Microscopic WBC 0-2 (0-5) /HPF Ur Epithelial Cells None Seen (None Seen) /HPF Urine Bacteria None Seen (None Seen) /HPF Urine Culture Reflexed NO (NO) 06/25/25 06/25/25 Range/Units 12:13 12:13 WBC 8.9 (4.23-9.07) x10^3/uL RBC 4.45 L (4.63-6.08) x10^6/uL Hgb 14.5 (13.7-17.5) g/dL Hct 41.3 (40.1-51.0) % MCV 92.8 H (79.0-92.2) fL MCH 32.6 H (25.7-32.2) pg MCHC 35.1 (32.3-36.5) g/dL RDW 12.0 (11.6-14.4) % Plt Count 147 L (163-337) x10^3/uL MPV 10.5 (9.4-12.4) fL Gran % 75.6 H (34.0-67.9) % Immature Gran % (Auto) 0.3 (0.001-0.429) % Nucleat RBC Rel Count 0.0 (0.00-0.2) % Eos # (Auto) 0.02 L (0.04-0.54) x10^3/uL Immature Gran # (Auto) 0.03 (0.001-0.031) x10^3u/L Absolute Lymphs (auto) 1.30 L (1.32-3.57) x10^3/uL Absolute Monos (auto) 0.80 (0.30-0.82) x10^3/uL Absolute Nucleated RBC 0.00 (0.00-0.012) x10^3u/L Lymphocytes % 14.6 L (21.8-53.1) % Monocytes % 9.0 (5.3-12.2) % Eosinophils % 0.2 L (0.8-7.0) % Basophils % 0.3 (0.2-1.2) % Absolute Granulocytes 6.75 H (1.78-5.38) x10^3/uL Basophils # 0.03 (0.01-0.08) x10^3/uL Sodium (135-145) mmol/L Potassium (3.5-5.1) mmol/L Chloride (98-107) mmol/L Carbon Dioxide (22-30) mmol/L Anion Gap (5-15) MEQ/L BUN (9-20) mg/dL Creatinine (0.66-1.25) mg/dL Estimated GFR ML/MIN Glucose (74-106) mg/dL POC Glucometer (74 to 106) mg/dL Calcium (8.4-10.2) mg/dL Total Bilirubin (0.2-1.3) mg/dL AST (17-59) U/L ALT (0-50) U/L Alkaline Phosphatase (38-126) U/L Serum Total Protein (6.3-8.2) g/dL Albumin (3.5-5.0) g/dL Amylase 85 (30-110) U/L Lipase 151 (23-300) U/L Urine Color (Yellow) Urine Appearance (Clear) Urine pH (4.6-8.0) Ur Specific [place] (1.005-1.030) Urine Protein (Negative) Urine Glucose (UA) (Negative) mg/dL Urine Ketones (Negative) Urine Blood (Negative) Urine Nitrite (Negative) Urine Bilirubin (Negative) Urine Urobilinogen (0.2) mg/dL Ur Leukocyte Esterase (Negative) U Hyaline Cast (Auto) (0-2) /LPF Urine Microscopic RBC (0-5) /HPF Urine Microscopic WBC (0-5) /HPF Ur Epithelial Cells (None Seen) /HPF Urine Bacteria (None Seen) /HPF Urine Culture Reflexed (NO) - Progress Progress: improved, re-examined Progress Note: 06/25/25 12:07 My medical decision making and the assignment of moderate complexity of this patient's medical issue today is based on review of the patient's past medical history, reviewed patient's medication list, reviewed patient drug allergy list, history present illness and physical findings on examination. The workup in this patient includes placement of intravenous line, infusion of normal saline solution, CBC, CMP, amylase, lipase, urinalysis, CT scan of the abdomen pelvis without contrast. Differential diagnosis includes but is not limited to intra- abdominal/intrapelvic mass, rectal prolapse, constipation 06/25/25 14:[address] scan of the abdomen pelvis without contrast was interpreted by the radiologist and I reviewed the impression. It was compared to similar study dated 12/04/2024. The impression states jejunal circumferential, wall thickening with new stranding possible enteritis. Small bowel lymphoma not completely excluded. Otherwise chronic findings. Urinalysis shows mild dehydration but no other acute, emergent medical issues. I interpreted the remainder of the laboratory data which does not show any acute, emergent medical issues. I had a discussion with the patient and his spouse. The patient should follow- up with general surgery to discuss the patient's constipation/rectal, pelvic tenderness and, likely, rectal prolapse issues. Patient also needs to follow-up with his primary care provider today, by phone, 06/25/2025, to have this jejunal circumferential wall thickening region more fully evaluated and referred to specialist as indicated. Counseled pt/family regarding: lab results, diagnosis, need for follow-up, rad results Medical Desision Making - Independent Historian Additional History obtained from: Spouse - Diagnostic Testing Diagnostic test were ordered, analyzed, and reviewed by me: Yes Radiological Interpretation: Reviewed by me, Teleradiologist Report - Risk of complications Low Risk: Low risk of morbidity from additional dx testing or treatment The pt has a mod risk of morbidity or mortality based on: Need for prescription drug management - Departure Departure Disposition: Home Clinical Impression: Rectal prolapse, Regional enteritis of jejunum, Dehydration Condition: Stable Critical Care Time: No Referrals: LEVON PINA, DECKHAND SPONGE BOAT [Primary Care Provider, [facility]] - Follow up/PCP as directed Additional Instructions: Drink plenty of clear liquids before advancing your diet. Take your antibiotics and other medications as prescribed. Call your primary care provider and your general surgeon today, 06/25/2025, to make arrangements for a follow-up appointment to be seen in the next 3 to 5 days for further evaluation of the jejunal circumferential wall thickening as well as the rectal prolapse and difficulty with bowel movement. Sitz bath 2-3 times a day with warm soapy water or warm Epsom salts. Prescriptions: Metronidazole 500 mg [Flagyl 500 MG] 500 mg PO TID #21 tablet
[2025-06-25 11:49] VITALS: TEMP 97
[2025-06-25] MEDS ORDERED: Hydromorphone 1 mg/ml Injection ONE (12:11)
[2025-06-25] MEDS ORDERED: Zofran 4 MG/2 ML VIAL ONE (12:11)
[2025-06-25 12:15] LABS: BASOPHIL % 0.3 % (0.2-1.2); Basophil (Absolute #) 0.03 x10^3/uL (0.01-0.08); Eosinophil (Absolute #) 0.02 x10^3/uL (0.04-0.54); Hematocrit 41.3 % (40.1-51.0); Hemoglobin 14.5 g/dL (13.7-17.5); IMMATURE GRAN # 0.03 x10^3u/L (0.001-0.031); IMMATURE GRAN % 0.3 % (0.001-0.429); Lymphocyte (Absolute #) 1.30 x10^3/uL (1.32-3.57); Mean Corpuscular Hemoglobin 32.6 pg (25.7-32.2); Mean Corpuscular Hgb Concent. 35.1 g/dL (32.3-36.5); Monocyte (Absolute #) 0.80 x10^3/uL (0.30-0.82); NUCLEATED RBC # 0.00 x10^3u/L (0.00-0.012); NUCLEATED RBC % 0.0 % (0.00-0.2); Platelet Count 147 x10^3/uL (163-337); Red Blood Count 4.45 x10^6/uL (4.63-6.08); White Blood Count 8.9 x10^3/uL (4.23-9.07)
[2025-06-25] MEDS: Zofran 4 MG/2 ML VIAL IV ONE (12:15)
[2025-06-25] MEDS: Hydromorphone 1 mg/ml Injection IV ONE (12:16)
[2025-06-25 13:12] VITALS: RESP 18
--- NOTE | 2025-06-25 13:48 | XRAY ---
Indication: Pelvic and rectal pain. Weight loss. Multiple contiguous axial images obtained through the abdomen and pelvis without contrast. Comparison: December 04, 2024 Lung bases demonstrates small posterior left lower lobe calcified granuloma, not previously included. No infiltrate or effusion. Heart not enlarged. Noncontrasted stomach and bowel loops appear nonobstructed. Several left abdominal jejunal bowel loops again demonstrates mild circumferential wall stranding with new minimal stranding favoring enteritis. Tiny pelvic free fluid presumed reactive. No free air. Normal air-filled appendix. Again sigmoid diverticulosis, nonobstructing left renal micro calculus, mild fatty liver, and pancreatic tail chronic pancreatitis calcification. Remaining liver, gallbladder, pancreas, spleen, adrenal glands, kidneys, ureters, bladder, and aorta are unremarkable for noncontrast exam. Osseous structures intact again with minimal degenerative changes throughout spine. Stable small fatty left inguinal hernia. Impression: 1. Again jejunal circumferential wall thickening with new stranding, possible enteritis in right clinical setting. As before, small-bowel lymphoma not completely excluded. 2. Chronic findings including sigmoid diverticulosis, fatty liver, chronic pancreatitis calcification, nonobstructing left renal micro calculus, degenerative spondylosis, and fatty left inguinal hernia.
[2025-06-25 13:55] LABS: Glucose, Urine >=1000 mg/dL (Negative); Protein,Urine Dip 30 (Negative); RBC 0-2 /HPF (0-5); WBC 0-2 /HPF (0-5)
[2025-06-25 14:16] LABS: Calcium 9.7 mg/dL (8.4-10.2); Carbon Dioxide 24.0 mmol/L (22-30); Creatinine 1 0.77 mg/dL (0.66-1.25); EST GLOMERULAR FILTRATION RATE 100.0 ML/MIN; Glucose 278.0 mg/dL (74-106); Potassium 4.3 mmol/L (3.5-5.1); SGOT/AST 41.0 U/L (17-59); SGPT/ALT 32.0 U/L (0-50); Total Protein 7.6 g/dL (6.3-8.2)
[2025-06-25 14:20] VITALS: BP 123/72; PULSE 79; O2SAT 99
[2025-06-25] MEDS ORDERED: Flagyl 500 MG ONE (14:20)
[2025-06-25] MEDS: Flagyl 500 MG PO ONE (14:22)
== END 2025-06-25 14:56 | disposition home or self-care (01) ==
LOC: ED 11:24
DX: K62.3 Rectal prolapse (principal); K50.00 Crohn's disease of small intestine without complications; E86.0 Dehydration; R10.30 Lower abdominal pain, unspecified; R63.4 Abnormal weight loss; E11.22 Type 2 diabetes mellitus with diabetic chronic kidney disease; I12.9 Hypertensive chronic kidney disease with stage 1 through stage 4 chronic kidney disease, or unspecified chronic kidney disease; N18.9 Chronic kidney disease, unspecified; Z79.84 Long term (current) use of oral hypoglycemic drugs; Z79.899 Other long term (current) drug therapy